=== PATIENT | female | born 1985 | race Caucasian/White ===

== ENCOUNTER 2017-10-01 10:32 | Emergency (ER) | payer BC, OTHER ==
[2017-10-01 10:49] VITALS: RESP 16; TEMP 97.9
[2017-10-01] MEDS ORDERED: ONDANSETRON ODT 4 MG TAB PO STA (12:17)
--- NOTE | 2017-10-01 12:35 | ED ---
Head Injury HPI - General Chief complaint: Head Injury Stated complaint: head injury Time Seen by Provider: 10/01/17 12:04 Source: patient, RN notes reviewed Mode of arrival: wheelchair Limitations: no limitations - History of Present Illness Initial comments: This is a 32-year-old female who presents to the emergency department chief complaint of head injury. Patient states at approximately 1245 last evening while at work at [employer] she bent down to tie her shoe. She states that she hit the front of her head on the counter above her. Reports that she had a small abrasion at the time and there was minimal bleeding that abruptly stopped. Patient reports that today she has been feeling dizzy and nauseous. She describes the dizziness as lightheadedness and that the room is spinning. She states that she feels like she is in a haze. Patient was reports that she has been having blurred vision in bilateral eyes as well as a frontal headache. She states that she took Motrin last night and this morning for headache. Denies fever, chills, chest pain, shortness of breath, abdominal pain, vomiting , constipation or diarrhea, dysuria or hematuria, numbness or tingling. - Related Data Home Medications Medication Instructions Recorded Confirmed ALPRAZolam [Xanax] 0.5 mg PO BID PRN 07/25/16 07/28/16 buPROPion SR [Wellbutrin SR] 150 mg PO QAM 07/25/16 07/28/16 Previous Rx's Medication Instructions Recorded Acetaminophen-Codeine 300-30mg 1 tab PO Q4H PRN #30 tablet 07/29/16 [Tylenol #3] Ibuprofen [Motrin] 600 mg PO Q6HR PRN #30 tab 07/29/16 Ferrous Sulfate [Feosol] 325 mg PO DAILY #30 tab 07/31/16 Allergies/Adverse reactions: Allergies Allergy/AdvReac Type Severity Reaction Status Date / Time No Known Allergies Allergy Verified 10/01/17 10:49 Review of Systems ROS Statement: Those systems with pertinent positive or pertinent negative responses have been documented in the HPI. ROS Other: All systems not noted in ROS Statement are negative. Past Medical History Additional Past Medical History / Comment(s): FIBROID, ENDOMETRIOSIS History of Any Multi-Drug Resistant Organisms: MRSA Date of last positivie culture/infection: March MDRO Source:: PUNCTURE WOUND SITE POST LAP BAND Past Surgical History: Appendectomy, Bariatric Surgery, Section, Cholecystectomy, Tubal Ligation, Uterine Ablation Additional Past Surgical History / Comment(s): LAP BAND & LAP BAND REPLACED Past Anesthesia/Blood Transfusion Reactions: Family History of Problems w/ Anesthesia Additional Past Anesthesia/Blood Transfusion Reaction / Comment(s): PATIENT WAKES UP VERY AGITATED. MOTHER HAD MOTION SICKNESS. Past Psychological History: Anxiety, Depression Smoking Status: Never smoker Past Alcohol Use History: Occasional Past Drug Use History: None Reported - Past Family History Mother Family Medical History: Cancer Additional Family Medical History / Comment(s): LUNG CANCER General Exam - General Exam Comments Initial Comments: General: Awake and alert, well-developed; in no apparent distress. HEENT: Head normocephalic. Small abrasion on the frontal scalp. No bleeding noted. Pupils are equal, round and reactive to light. Extraocular movements intact. Oropharynx moist without erythema or exudate. Neck: Supple. Normal ROM. Cardiovascular: Regular rate and rhythm. No murmurs, rubs or gallops. Chest symmetrical. Respiratory: Lungs clear to auscultation bilaterally. No wheezes, rales or rhonchi. Normal respiratory effort with no use of accessory muscles. Musculoskeletal: Normal ROM, no tenderness bilateral upper and lower extremities. Pulses 2+ equal and palpable bilaterally. Skin: [place], warm and dry without rashes or lesions. Neurological: Alert and oriented x3. CN II-XII grossly intact. Speech is fluent and answers are appropriate. No focal neuro deficits. Strength 5/5 bilateral upper and lower extremities. Rapid alternating movements normal. Finger to nose testing is normal. Romberg negative. Patient is off balance with heel to toe gait. Psychiatric: Normal mood and affect. No overt signs of depression or anxiety noted. Limitations: no limitations Course Vital Signs 10/01/17 10:47 Temperature 97.9 F Pulse Rate 79 Respiratory 16 Rate Blood Pressure 154/70 O2 Sat by Pulse 100 Oximetry Medical Decision Making - Medical Decision Making This is a 32-year-old female presents to the emergency department chief complaint of head injury. Computed tomography scan without contrast of the brain showed no intracranial hemorrhages or other acute abnormalities. Patient advised to follow up with primary care provider in 1-2 days and follow-up concussion protocol. Patient is in no acute distress at this time. She is in agreement to the plan and voiced understanding. All questions were answered. - Radiology Data Radiology results: report reviewed CT brain without contrast findings: There is no acute intracranial hemorrhage, mass effect or midline shift identified. The ventricles and sulci are within normal limits in size. The globes are intact and visualized sinuses are clear. No suspicious extra axial fluid collection is identified. Impression: No acute intracranial hemorrhage, mass effect or midline shift seen. Disposition Clinical Impression: Postconcussion syndrome Disposition: HOME SELF-CARE Condition: Good Instructions: Post Concussion Syndrome (ED) Additional Instructions: Please follow up with primary care provider within 1-2 days. Return to emergency department if symptoms should worsen or any concerns arise. Referrals: Neftali Campos DO [Primary Care Provider] - 1-2 days Time of Disposition: 12:58
--- NOTE | 2017-10-01 12:37 | CT ---
EXAMINATION TYPE: CT brain wo con DATE OF EXAM: 10/01/2017 COMPARISON: 02/08/2013 HISTORY: head injury CT DLP: 878.1 mGycm. Automated Exposure Control for Dose Reduction was Utilized. TECHNIQUE: CT scan of the head is performed without contrast. FINDINGS: There is no acute intracranial hemorrhage, mass effect, or midline shift identified. The ventricles and sulci are within normal limits in size. The globes are intact and the visualized sin uses are clear. No suspicious extra-axial fluid collection is identified. IMPRESSION: No acute intracranial hemorrhage, mass effect, or midline shift is seen.
[2017-10-01 13:11] VITALS: BP 141/89; PULSE 69
== END 2017-10-01 13:10 | disposition home or self-care (01) ==
LOC: EC 10:32
DX: S00.01XA Abrasion of scalp, initial encounter (principal); F07.81 Postconcussional syndrome; G44.319 Acute post-traumatic headache, not intractable; F32.9 Major depressive disorder, single episode, unspecified; F41.9 Anxiety disorder, unspecified; Z86.14 Personal history of Methicillin resistant Staphylococcus aureus infection; Z79.899 Other long term (current) drug therapy; W22.8XXA Striking against or struck by other objects, initial encounter; Y93.89 Activity, other specified; Y99.0 Civilian activity done for income or pay; Y92.69 Other specified industrial and construction area as the place of occurrence of the external cause
CPT/HCPCS: 70450; 99283

== ENCOUNTER → 2020-09-13 | Outpatient (CLI) | payer OTHER ==
[2020-09-13 13:29] VITALS: BP 135/81; PULSE 99; RESP 18; TEMP 98.4; BMI 25.4
--- NOTE | 2020-09-13 14:03 | P.HPBAR ---
Bariatric H&P - History & Physicial H&P Date: 09/13/20 History & Physicial: Visit/CC: lap band f/u; last seen about 5 years Patient initial contact: Initial weight: Initial weight in pounds: Height: 5 ft 4 in Initial BMI: Last weight: Current weight: 67.132 kg Current weight in pounds: 148.00 Current BMI: 25.4 [place] body weight (based on NIH guidelines): 54.431 kg Excess body weight loss: The patient is a 35 year-old F who presents for Bariatric Assessment. Patient resents today for LAP-BAND follow-up. She states that she is felt pain at her port site. She states that port is moving. Past Medical History Additional Past Medical History / Comment(s): FIBROID, ENDOMETRIOSIS History of Any Multi-Drug Resistant Organisms: MRSA Year Discovered:: March MDRO Source:: PUNCTURE WOUND SITE POST LAP BAND Past Surgical History: Appendectomy, Bariatric Surgery, Section, Cholecystectomy, Hysterectomy, Tubal Ligation, Uterine Ablation Additional Past Surgical History / Comment(s): LAP BAND & LAP BAND REPLACED Past Anesthesia/Blood Transfusion Reactions: Family History of Problems w/ Anesthesia Additional Past Anesthesia/Blood Transfusion Reaction / Comm: PATIENT WAKES UP VERY AGITATED. MOTHER HAD MOTION SICKNESS. Past Psychological History: Anxiety, Depression Smoking Status: Never smoker Past Alcohol Use History: Occasional Past Drug Use History: None Reported - Past Family History Mother Family Medical History: Cancer Additional Family Medical History / Comment(s): LUNG CANCER Surgical - Exam Vital Signs Temp Pulse Resp BP 98.4 F 99 18 135/81 09/13/20 13:23 09/13/20 13:23 09/13/20 13:23 09/13/20 13:23 - General well developed, well nourished, no distress - Eyes PERRL - ENT normal pinna - Neck no masses - Respiratory normal expansion - Cardiovascular Rhythm: regular - Abdomen LAP-BAND port is mobile. Patient lifts her legs and the port will protrude from the abdominal wall Abdomen: soft, non tender Bariatric Assessment & Plan Plan: LAP-BAND port was flushed. Patient be scheduled for LAP-BAND port replacement. Bariatric Checklist Checklist: Plan: Checklist: EGD: 1. Hiatal hernia: 2. H. Pylori: HgbA1c: Vitamin D: Smoking: Never smoker Primary care physician referral: Dr. Byrd Psychiatry clearance: Cardiology clearance: Sleep study: Diet journal: VTE risk score: VTE risk level: Rehab needs at discharge:
== END | disposition home or self-care (01) ==
LOC: BARWHC3 13:05
PROVIDERS: ATTEND Surgery
DX: Z46.51 Encounter for fitting and adjustment of gastric lap band (principal); Z98.84 Bariatric surgery status; Z72.89 Other problems related to lifestyle
CPT/HCPCS: 99211

== ENCOUNTER 2020-10-08 08:34 | Emergency (ER) | payer OTHER ==
--- NOTE | 2020-10-08 09:32 | ED ---
URI HPI - General Chief Complaint: Upper Respiratory Infection Stated Complaint: Chest Pain, Poss blood clot Time Seen by Provider: 10/08/20 09:06 Source: patient Mode of arrival: ambulatory Limitations: no limitations - History of Present Illness Initial Comments: 35-year-old female who had a recent cold in 19 infection 2 weeks ago, use control presenting to the ER today for cc of left leg pain/swelling and chest pain/SOB. Patient states that she had tested positive 2 weeks ago with covid 19, she states she was starting to feel better and only had mild symptoms even at the time of infection. Patient states that for the past 3 days she has had an aching sensation in the left posterior calf and noted mild swelling, she states she has also had a pressure over her chest that increases with inspiration. Patient denies hemoptysis, history of DVT/PE. Patient denies nausea, vomiting. She states she has mild SOB. Patient went to her PCP appointment today at [facility] and told to come here for evaluation of possible blood clots. Patient has no additional complaints. - Related Data Home Medications Medication Instructions Recorded Confirmed Escitalopram [Lexapro] 10 mg PO DAILY 09/13/20 10/08/20 buPROPion XL [Wellbutrin Xl] 150 mg PO DAILY 10/08/20 10/08/20 Allergies Allergy/AdvReac Type Severity Reaction Status Date / Time No Known Allergies Allergy Verified 10/08/20 09:17 Review of Systems ROS Statement: Those systems with pertinent positive or pertinent negative responses have been documented in the HPI. ROS Other: All systems not noted in ROS Statement are negative. Past Medical History Additional Past Medical History / Comment(s): FIBROID, ENDOMETRIOSIS, covid 19 History of Any Multi-Drug Resistant Organisms: MRSA Date of last positivie culture/infection: March MDRO Source:: PUNCTURE WOUND SITE POST LAP BAND Past Surgical History: Appendectomy, Bariatric Surgery, Section, Cholecystectomy, Hysterectomy, Tubal Ligation, Uterine Ablation Additional Past Surgical History / Comment(s): LAP BAND & LAP BAND REPLACED Past Anesthesia/Blood Transfusion Reactions: Family History of Problems w/ Anesthesia Additional Past Anesthesia/Blood Transfusion Reaction / Comment(s): PATIENT WAKES UP VERY AGITATED. MOTHER HAD MOTION SICKNESS. Past Psychological History: Anxiety, Depression Smoking Status: Never smoker Past Alcohol Use History: Occasional Past Drug Use History: None Reported - Past Family History Mother Family Medical History: Cancer Additional Family Medical History / Comment(s): LUNG CANCER General Exam - General Exam Comments Initial Comments: General: The patient is awake and alert, in no distress Eye: +3 mm pupils are equal, round and reactive to light, extra-ocular movements are intact. No nystagmus. There is normal conjunctiva bilaterally. No signs of icterus. Ears, nose, mouth and throat: There are moist mucous membranes and no oral lesions. Neck: The neck is supple, there is no tenderness or JVD. Cardiovascular: There is a regular rate and rhythm. No murmur, rub or gallop is appreciated. Respiratory: Lungs are clear to auscultation, respirations are non-labored, breath sounds are equal. No wheezes, stridor, rales, or rhonchi. Gastrointestinal: Soft, non-distended, non-tender abdomen without masses or organomegaly noted. There is no rebound or guarding present. Musculoskeletal: Normal ROM, no tenderness. Strength 5/5. Sensation intact. DP pulses equal bilaterally 2+. Neurological: A&O x 3. CN II-XII intact, There are no obvious motor or sensory deficits. Coordination appears grossly intact. Speech is normal. Skin: Skin is warm and dry and no rashes or lesions are noted. Left calf pain and mild swelling. Psychiatric: Cooperative, appropriate mood & affect, normal judgment. Limitations: no limitations Course Vital Signs 10/08/20 10/08/20 10/08/20 08:47 09:50 09:56 Temperature 99.4 F Pulse Rate 92 70 Respiratory 20 18 18 Rate Blood Pressure 109/61 123/69 O2 Sat by Pulse 100 100 Oximetry 10/08/20 10/08/20 10:56 11:50 Temperature 97.5 F L Pulse Rate 62 60 Respiratory 18 18 Rate Blood Pressure 124/64 112/66 O2 Sat by Pulse 100 100 Oximetry Medical Decision Making - Medical Decision Making D-dimer mildly elevated lab stable. Patient is no obvious swelling of the leg ultrasound negative for DVT CTA no convincing findings of pulmonary embolism. Patient's vital signs normalized she appears well and nontoxic distress she is not hypoxic nor tachycardic. At this time feel she is stable for discharge with outpatient primary care follow-up patient is agreeable to this care plan and return parameters recommended repeat ultrasound of left lower extremity one week if symptoms are persistent. Discussed case with Dr. Aleman who is agreeable to care plan - Lab Data Result diagrams: 10/08/20 09:47 10/08/20 09:47 Lab Results 10/08/20 10/08/20 10/08/20 Range/Units 09:47 09:47 09:47 WBC 3.8 (3.8-10.6) k/uL RBC 4.84 (3.80-5.40) m/uL Hgb 14.9 (11.4-16.0) gm/dL Hct 43.3 (34.0-46.0) % MCV 89.4 (80.0-100.0) fL MCH 30.8 (25.0-35.0) pg MCHC 34.4 (31.0-37.0) g/dL RDW 12.9 (11.5-15.5) % Plt Count 242 (150-450) k/uL MPV 7.5 Neutrophils % 61 % Lymphocytes % 24 % Monocytes % 7 % Eosinophils % 4 % Basophils % 1 % Neutrophils # 2.3 (1.3-7.7) k/uL Lymphocytes # 0.9 L (1.0-4.8) k/uL Monocytes # 0.3 (0-1.0) k/uL Eosinophils # 0.2 (0-0.7) k/uL Basophils # 0.1 (0-0.2) k/uL PT 9.9 (9.0-12.0) sec INR 1.0 (<1.2) APTT 21.5 L (22.0-30.0) sec D-Dimer 0.72 H (<0.60) mg/L FEU Sodium 138 (137-145) mmol/L Potassium 4.8 (3.5-5.1) mmol/L Chloride 108 H (98-107) mmol/L Carbon Dioxide 24 (22-30) mmol/L Anion Gap 6 mmol/L BUN 16 (7-17) mg/dL Creatinine 0.78 (0.52-1.04) mg/dL Est GFR (CKD-EPI)AfAm >90 (>60 ml/min/1.73 sqM) Est GFR (CKD-EPI)NonAf >90 (>60 ml/min/1.73 sqM) Glucose 66 L (74-99) mg/dL Calcium 9.3 (8.4-10.2) mg/dL Magnesium 2.0 (1.6-2.3) mg/dL Total Bilirubin 1.1 (0.2-1.3) mg/dL AST 20 (14-36) U/L ALT 10 (4-34) U/L Alkaline Phosphatase 51 (38-126) U/L Troponin I (0.000-0.034) ng/mL Total Protein 6.9 (6.3-8.2) g/dL Albumin 4.1 (3.5-5.0) g/dL 10/08/20 Range/Units 09:47 WBC (3.8-10.6) k/uL RBC (3.80-5.40) m/uL Hgb (11.4-16.0) gm/dL Hct (34.0-46.0) % MCV (80.0-100.0) fL MCH (25.0-35.0) pg MCHC (31.0-37.0) g/dL RDW (11.5-15.5) % Plt Count (150-450) k/uL MPV Neutrophils % % Lymphocytes % % Monocytes % % Eosinophils % % Basophils % % Neutrophils # (1.3-7.7) k/uL Lymphocytes # (1.0-4.8) k/uL Monocytes # (0-1.0) k/uL Eosinophils # (0-0.7) k/uL Basophils # (0-0.2) k/uL PT (9.0-12.0) sec INR (<1.2) APTT (22.0-30.0) sec D-Dimer (<0.60) mg/L FEU Sodium (137-145) mmol/L Potassium (3.5-5.1) mmol/L Chloride (98-107) mmol/L Carbon Dioxide (22-30) mmol/L Anion Gap mmol/L BUN (7-17) mg/dL Creatinine (0.52-1.04) mg/dL Est GFR (CKD-EPI)AfAm (>60 ml/min/1.73 sqM) Est GFR (CKD-EPI)NonAf (>60 ml/min/1.73 sqM) Glucose (74-99) mg/dL Calcium (8.4-10.2) mg/dL Magnesium (1.6-2.3) mg/dL Total Bilirubin (0.2-1.3) mg/dL AST (14-36) U/L ALT (4-34) U/L Alkaline Phosphatase (38-126) U/L Troponin I <0.012 (0.000-0.034) ng/mL Total Protein (6.3-8.2) g/dL Albumin (3.5-5.0) g/dL Disposition Clinical Impression: Chest discomfort, History of 2019 novel coronavirus disease (COVID-19), Pain of left calf Disposition: HOME SELF-CARE Condition: Good Instructions (If sedation given, give patient instructions): Upper Respiratory Infection (ED) Additional Instructions: Please use medication as discussed. Please follow-up with family doctor in the next 2 days. Please return to emergency room if the symptoms increase or worsen or for any other concerns. Is patient prescribed a controlled substance at d/c from ED?: No Referrals: Mary Byrd DO [Primary Care Provider] - 1-2 days Time of Disposition: 11:31
[2020-10-08 09:50] VITALS: RESP 18
[2020-10-08 09:59] LABS: Basophils # (A) 0.1 k/uL (0-0.2); Basophils % (A) 1 %; Eosinophils # (A) 0.2 k/uL (0-0.7); Eosinophils % (A) 4 %; HCT 43.3 % (34.0-46.0); HGB 14.9 gm/dL (11.4-16.0); Lymphocytes # (A) 0.9 k/uL (1.0-4.8); Lymphocytes % (A) 24 %; MCH 30.8 pg (25.0-35.0); MCHC 34.4 g/dL (31.0-37.0); MCV 89.4 fL (80.0-100.0); Mean Platelet Volume 7.5; Monocytes # (A) 0.3 k/uL (0-1.0); Monocytes % (A) 7 %; Neutrophils # (A) 2.3 k/uL (1.3-7.7); Neutrophils % (A) 61 %; Platelet Count 242 k/uL (150-450); RBC 4.84 m/uL (3.80-5.40); RDW 12.9 % (11.5-15.5); WBC 3.8 k/uL (3.8-10.6)
[2020-10-08 10:10] LABS: ALT 10 U/L (4-34); AST 20 U/L (14-36); African American GFR (CKD) >90 (>60 ml/min/1.73 sqM); Albumin 4.1 g/dL (3.5-5.0); Alkaline Phosphatase 51 U/L (38-126); Anion Gap 6 mmol/L; Blood Urea Nitrogen 16 mg/dL (7-17); Calcium 9.3 mg/dL (8.4-10.2); Carbon Dioxide 24 mmol/L (22-30); Chloride 108 mmol/L (98-107); Glucose 66 mg/dL (74-99); Non-African American GFR(CKD) >90 (>60 ml/min/1.73 sqM); Potassium 4.8 mmol/L (3.5-5.1); Sodium 138 mmol/L (137-145); Total Bilirubin 1.1 mg/dL (0.2-1.3); Total Protein 6.9 g/dL (6.3-8.2)
--- NOTE | 2020-10-08 10:34 | CT ---
EXAMINATION TYPE: CT chest angio for PE DATE OF EXAM: 10/08/2020 COMPARISON: None HISTORY: COVID 19, Left leg swelling, chest pain CT DLP: 196.7 mGycm Automated exposure control for dose reduction was used. CONTRAST: CT Chest for pulmonary embolism performed with without and with IV Contrast, patient injected with 10 0 ml mL of Isovue 370. FINDINGS: LUNGS: The lungs are grossly clear, there is no concerning parenchymal mass or nodule identified. T here is no pleural effusion or pneumothorax seen. The tracheobronchial tree is patent. MEDIASTINUM: There is satisfactory enhancement of the pulmonary artery and its branches, there is no CT evidence for pulmonary embolism. There are no greater than 1 cm hilar or mediastinal lymph nodes. No pericardial effusion is seen. AORTA: No additional significant abnormality is seen. OTHER: The patient is post lap band. Distal esophagus shows thickened appearance.. IMPRESSION: Postop changes. Findings in the esophagus may be related to patient's surgery but are indeterminate. No evident pulmonary embolism.
[2020-10-08 10:43] LABS: Partial Thromboplastin Time 21.5 sec (22.0-30.0); Prothrombin Time 9.9 sec (9.0-12.0)
[2020-10-08 10:53] LABS: D-Dimer 0.72 mg/L FEU (<0.60)
--- NOTE | 2020-10-08 11:28 | US ---
EXAMINATION TYPE: US venous doppler duplex LE DATE OF EXAM: 10/08/2020 11:07 AM COMPARISON: NONE CLINICAL HISTORY: 35-year-old female Left leg pain and swelling SIDE PERFORMED: Left TECHNIQUE: The lower extremity deep venous system is examined utilizing real time linear array sonog barbie with graded compression, doppler sonography and color-flow sonography. FINDINGS: VESSELS IMAGED: Common Femoral Vein Deep Femoral Vein Greater Saphenous Vein * Femoral Vein Popliteal Vein Small Saphenous Vein * Proximal Calf Veins (* superficial vessels) Left Leg: Appears negative for DVT IMPRESSION: No evidence for DVT within the left lower extremity imaged from the groin to the upper calf.
[2020-10-08 11:52] VITALS: BP 112/66; PULSE 60; TEMP 97.5
== END 2020-10-08 11:54 | disposition home or self-care (01) ==
LOC: EC 08:34
DX: R07.89 Other chest pain (principal); M79.605 Pain in left leg; R79.89 Other specified abnormal findings of blood chemistry; F41.9 Anxiety disorder, unspecified; F32.9 Major depressive disorder, single episode, unspecified; Z79.899 Other long term (current) drug therapy; Z86.19 Personal history of other infectious and parasitic diseases; Z86.14 Personal history of Methicillin resistant Staphylococcus aureus infection; Z98.84 Bariatric surgery status
CPT/HCPCS: 36415; 93005; 85379; 80053; 83735; 84484; 85025; 85610; 85730; 93971; 71275; 99285; Q9967

== ENCOUNTER → 2020-12-31 | Outpatient (CLI) | payer OTHER ==
[2020-12-31 16:26] LABS: Basophils # (A) 0.1 k/uL (0-0.2); Basophils % (A) 1 %; Eosinophils # (A) 0.2 k/uL (0-0.7); Eosinophils % (A) 5 %; HCT 39.2 % (34.0-46.0); HGB 13.3 gm/dL (11.4-16.0); Lymphocytes # (A) 1.1 k/uL (1.0-4.8); Lymphocytes % (A) 24 %; MCHC 33.9 g/dL (31.0-37.0); MCV 91.5 fL (80.0-100.0); Monocytes # (A) 0.3 k/uL (0-1.0); Monocytes % (A) 7 %; Neutrophils # (A) 2.8 k/uL (1.3-7.7); Neutrophils % (A) 61 %; Platelet Count 230 k/uL (150-450); RBC 4.29 m/uL (3.80-5.40); RDW 13.1 % (11.5-15.5); WBC 4.6 k/uL (3.8-10.6)
[2020-12-31 16:37] LABS: ALT 9 U/L (4-34); AST 18 U/L (14-36); African American GFR (CKD) >90 (>60 ml/min/1.73 sqM); Albumin 4.2 g/dL (3.5-5.0); Alkaline Phosphatase 43 U/L (38-126); Anion Gap 8 mmol/L; Blood Urea Nitrogen 11 mg/dL (7-17); Calcium 9.2 mg/dL (8.4-10.2); Carbon Dioxide 26 mmol/L (22-30); Chloride 103 mmol/L (98-107); Glucose 71 mg/dL (74-99); Non-African American GFR(CKD) >90 (>60 ml/min/1.73 sqM); Potassium 4.3 mmol/L (3.5-5.1); Sodium 137 mmol/L (137-145); Total Bilirubin 2.1 mg/dL (0.2-1.3); Total Protein 6.7 g/dL (6.3-8.2)
== END | disposition home or self-care (01) ==
LOC: LABPAT 15:03
PROVIDERS: ATTEND Surgery
DX: Z01.818 Encounter for other preprocedural examination (principal)
CPT/HCPCS: 36415; 80053; 85025; 93005

== ENCOUNTER 2021-01-10 07:06 | Day surgery (SDC) | payer OTHER ==
[2021-01-06 14:35] VITALS: BMI 25.7
[~2021-01-10 07:06] MED LIST: DEXAMETHASONE SOD PHOSPHATE 4 MG/ML 1 ML VIAL IV ONE; HYDROmorphone 0.5 MG/0.5 ML SYRINGE IVP PRN; LACTATED RINGERS 1,000 ML IV SCH; MIDAZOLAM 2 MG/2 ML VIAL IV PRN; ONDANSETRON 4 MG/2 ML VIAL IVP ONE; SCOPOLAMINE 1.5MG/72HR PATCH TRANSDERM ONE
--- NOTE | 2021-01-10 08:54 | P.GSHP ---
History of Present Illness H&P Date: 01/10/21 Chief Complaint: GERD This a 35-year-old female who presents today for removal of LAP-BAND system. Patient's history of GERD. She has lost approximately 150 pounds with her LAP- BAND. Patient is unable to have her band adjusted in order to resolve her GERD issues. She's aware the risk of weight gain. Past Medical History Additional Past Medical History / Comment(s): ENDOMETRIOSIS, covid 19 History of Any Multi-Drug Resistant Organisms: MRSA Date of last positivie culture/infection: March MDRO Source:: PUNCTURE WOUND SITE POST LAP BAND Past Surgical History: Appendectomy, Bariatric Surgery, Section, Cholecystectomy, Hysterectomy, Tubal Ligation, Uterine Ablation Additional Past Surgical History / Comment(s): LAP BAND & LAP BAND REPLACED Past Anesthesia/Blood Transfusion Reactions: Family History of Problems w/ Anesthesia Additional Past Anesthesia/Blood Transfusion Reaction / Comment(s): PATIENT WAKES UP VERY AGITATED. MOTHER HAD MOTION SICKNESS. Smoking Status: Never smoker - Past Family History Mother Family Medical History: Cancer, Deep Vein Thrombosis (DVT) Additional Family Medical History / Comment(s): LUNG CANCER Medications and Allergies Home Medications Medication Instructions Recorded Confirmed Type Escitalopram [Lexapro] 10 mg PO DAILY 09/13/20 01/10/21 History buPROPion XL [Wellbutrin Xl] 150 mg PO DAILY 10/08/20 01/10/21 History Allergies Allergy/AdvReac Type Severity Reaction Status Date / Time No Known Allergies Allergy Verified 01/10/21 07:32 Surgical - Exam Vital Signs Temp Pulse Resp BP 97 F L 67 16 117/61 01/10/21 07:34 01/10/21 07:34 01/10/21 07:34 01/10/21 07:34 - General well developed, well nourished, no distress - Eyes PERRL - ENT normal pinna, normal nares - Neck no masses - Respiratory normal expansion - Cardiovascular Rhythm: regular - Abdomen Abdomen: soft, non tender Assessment and Plan Assessment: GERD. We'll perform removal of LAP-BAND system.
[2021-01-10] MEDS ORDERED: LIDOCAINE 1% INJ 10MG/ML (20 ML MDV) ONE (09:07)
[2021-01-10] MEDS ORDERED: ROCURONIUM 10 MG/ML (5 ML VIAL) IV ONE (09:07)
[2021-01-10] MEDS ORDERED: HEPARIN SODIUM,PORCINE 5,000 UNIT/ML 1 ML VIAL ONE (09:07)
[2021-01-10] MEDS ORDERED: PROPOFOL 10 MG/ML 20 ML VIAL IV ONE (09:07)
[2021-01-10] MEDS ORDERED: fentaNYL (PF) 50 MCG/ML 2 ML AMP ONE (09:07)
[2021-01-10] MEDS ORDERED: GLYCOPYRROLATE 0.2 MG/ML 2 ML VIAL ONE (09:07)
[2021-01-10] MEDS ORDERED: SUCCINYLCHOLINE CHLORIDE 100 MG/5 ML SYR IV ONE (09:07)
[2021-01-10] MEDS ORDERED: MIDAZOLAM 2 MG/2 ML VIAL ONE (09:07)
[2021-01-10] MEDS ORDERED: NEOSTIGMINE 1 MG/ML 10 ML VIAL ONE (09:07)
[2021-01-10] MEDS ORDERED: KETOROLAC 15 MG/ML 1 ML VIAL ONE (09:07)
[2021-01-10] MEDS ORDERED: BUPIVACAINE (PF) 0.5% 30 ML VIAL SQ ONE (09:33)
[2021-01-10 10:20] VITALS: TEMP 96.8
[2021-01-10] MEDS ORDERED: LACTATED RINGERS 1,000 ML IV ONE ×2 (10:30)
--- NOTE | 2021-01-10 10:30 | P.OP ---
Date of Procedure: 01/10/21 Preoperative Diagnosis: GERD Postoperative Diagnosis: GERD Procedure(s) Performed: Laparoscopic Removal of LAP-BAND system Anesthesia: MARGUERITE Surgeon: Parvez Dunn Estimated Blood Loss (ml): 10 Pathology: none sent Condition: stable Disposition: PACU Description of Procedure: The patient's placed on the operating table in the supine position she received general anesthesia. She was then placed in dorsal 5 position. Her abdomen was prepped and draped in sterile fashion. The skin was incised at the LAP-BAND port site and using left cautery the LAP-BAND port was dissected free the connecting tube was then cut. Next using a 5 mm trocar under direct visualization panel cavity is entered. The abdomen was insufflated after adequate insufflation the laparoscope placed back Cavity. Next a fibrillar trocar is placed in the right upper quadrant, right lateral position and left lateral position. The original 5 mm trocar was exchanged for a 15 minute trocar. And then a left periumbilical 5 mm trocar was placed. The adhesions to the LAP-BAND device were then seen. These were lysed using left cautery. The LAP-BAND was then cut and withdrawn from around stomach. The LAP-BAND was then extracted through the 15 mm trocar site. There is no bleeding seen. The trochars withdrawn. The skin was closed interrupted 3-0 Monocryl suture. Dermabond was applied. Patient top she will was sent to recovery room in stable condition.
[2021-01-10 12:24] VITALS: BP 108/67; PULSE 70; RESP 16
== END 2021-01-10 12:51 | disposition home or self-care (01) ==
LOC: OR 07:06
PROVIDERS: ATTEND Surgery
DX: K21.9 Gastro-esophageal reflux disease without esophagitis (principal); K66.0 Peritoneal adhesions (postprocedural) (postinfection); F41.9 Anxiety disorder, unspecified; F32.9 Major depressive disorder, single episode, unspecified; Z79.899 Other long term (current) drug therapy; Z90.49 Acquired absence of other specified parts of digestive tract; Z98.890 Other specified postprocedural states; Z90.710 Acquired absence of both cervix and uterus; Z86.16 Personal history of COVID-19; Z86.14 Personal history of Methicillin resistant Staphylococcus aureus infection; Z98.84 Bariatric surgery status; Z98.891 History of uterine scar from previous surgery; Z98.51 Tubal ligation status; Z82.49 Family history of ischemic heart disease and other diseases of the circulatory system; Z80.1 Family history of malignant neoplasm of trachea, bronchus and lung
CPT/HCPCS: 43774; J2250; J1644; J1100; J2710; J0690; J2405; J2001; J3010; J1885; J0330; J2704

== ENCOUNTER → 2022-01-30 | Outpatient (CLI) | payer OTHER ==
[2022-01-30 15:00] VITALS: BP 134/92; PULSE 82; TEMP 98.2; BMI 47.3
--- NOTE | 2022-01-30 15:38 | P.HPBAR ---
Bariatric H&P - History & Physicial H&P Date: 01/30/22 History & Physicial: Visit/CC: discuss sleeve gastrectomy Patient initial contact: Initial weight: Initial weight in pounds: Height: 5 ft 4 in Initial BMI: Last weight: Current weight: 125.191 kg Current weight in pounds: 276.00 Current BMI: 47.3 [place] body weight (based on NIH guidelines): 54.431 kg Excess body weight loss: The patient is a 36 year-old F who presents for Bariatric Assessment. He presents today for presurgical consultation. She had her LAP-BAND removed approximately 15 months ago. She is gained 125 pounds. She is requesting conversion sleeve gastrectomy. Patient had her LAP-BAND removed due to arya hnical problems with the LAP-BAND device. Past Medical History Additional Past Medical History / Comment(s): FIBROID, ENDOMETRIOSIS, covid 19 History of Any Multi-Drug Resistant Organisms: MRSA Year Discovered:: March MDRO Source:: PUNCTURE WOUND SITE POST LAP BAND Past Surgical History: Appendectomy, Bariatric Surgery, Section, Cholecystectomy, Hysterectomy, Tubal Ligation, Uterine Ablation Additional Past Surgical History / Comment(s): LAP BAND & LAP BAND REPLACED Past Anesthesia/Blood Transfusion Reactions: Family History of Problems w/ Anesthesia Additional Past Anesthesia/Blood Transfusion Reaction / Comm: PATIENT WAKES UP VERY AGITATED. MOTHER HAD MOTION SICKNESS. Smoking Status: Never smoker - Past Family History Mother Family Medical History: Cancer, Deep Vein Thrombosis (DVT) Additional Family Medical History / Comment(s): LUNG CANCER Surgical - Exam Vital Signs Temp Pulse BP 98.2 F 82 134/92 01/30/22 14:57 01/30/22 14:57 01/30/22 14:57 - General well developed, well nourished, no distress - Eyes PERRL - ENT normal pinna - Neck no masses - Respiratory normal expansion - Cardiovascular Rhythm: regular - Abdomen Abdomen: soft, non tender Bariatric Assessment & Plan Plan: Morbid obesity, BMI 47. Patient will undergo EGD. We will attempt authorizing for conversion to sleeve gastrectomy. Bariatric Checklist Checklist: Plan: Checklist: EGD: 1. Hiatal hernia: 2. H. Pylori: HgbA1c: Vitamin D: Smoking: Never smoker Primary care physician referral: Dr. Byrd Psychiatry clearance: Cardiology clearance: Sleep study: Diet journal: VTE risk score: VTE risk level: Rehab needs at discharge:
== END ==
LOC: BARWHC3 14:16
PROVIDERS: ATTEND Surgery
DX: E66.01 Morbid (severe) obesity due to excess calories (principal); Z68.42 Body mass index [BMI] 45.0-49.9, adult; Z98.84 Bariatric surgery status
CPT/HCPCS: 99211

== ENCOUNTER 2023-05-18 14:52 | Emergency (ER) | payer OTHER ==
[2023-05-18] MEDS ORDERED: LIDOCAINE 5% PATCH TOPICAL STA (16:21)
[2023-05-18] MEDS ORDERED: ORPHENADRINE 30 MG/ML 2 ML VIAL IM STA (16:22)
[2023-05-18] MEDS ORDERED: ACETAMINOPHEN TAB 325 MG TAB PO STA (16:22)
--- NOTE | 2023-05-18 16:26 | ED ---
General Adult HPI - General Chief complaint: Back Pain/Injury Stated complaint: Back Pain Time Seen by Provider: 05/18/23 16:01 Source: patient, RN notes reviewed Mode of arrival: wheelchair Limitations: no limitations - History of Present Illness Initial comments: 37-year-old female presents emergency Department with chief complaint of back pain. 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 She went to the chiropractor on Sunday and had some improvement in her pain but states that earlier today she bent down to lift a box and started having pain again. She states that she has been taking Motrin without relief. She reports that she has muscle relaxers at home but she has not taken any today. Denies fever, chills, urinary retention, loss of bowel or bladder function, saddle anesthesia. - Related Data Previous Rx's Medication Instructions Recorded Ibuprofen [Motrin] 600 mg PO Q6HR PRN #40 tab 01/10/21 Allergies Allergy/AdvReac Type Severity Reaction Status Date / Time No Known Allergies Allergy Verified 05/18/23 15:53 Review of Systems ROS Statement: Those systems with pertinent positive or pertinent negative responses have been documented in the HPI. ROS Other: All systems not noted in ROS Statement are negative. Past Medical History Additional Past Medical History / Comment(s): migraines, COVID 08/2020 History of Any Multi-Drug Resistant Organisms: MRSA Date of last positivie culture/infection: March MDRO Source:: PUNCTURE WOUND SITE POST LAP BAND Past Surgical History: Appendectomy, Bariatric Surgery, Section, Cholecystectomy, Hysterectomy, Tubal Ligation, Uterine Ablation Additional Past Surgical History / Comment(s): LAP BAND & LAP BAND REPLACED then later removed Past Anesthesia/Blood Transfusion Reactions: Family History of Problems w/ Anesthesia Additional Past Anesthesia/Blood Transfusion Reaction / Comment(s): PATIENT WAKES UP VERY AGITATED. MOTHER HAD MOTION SICKNESS. Past Psychological History: Anxiety, Depression Smoking Status: Former smoker Past Alcohol Use History: None Reported Past Drug Use History: None Reported - Past Family History Mother Family Medical History: Cancer, Deep Vein Thrombosis (DVT) Additional Family Medical History / Comment(s): LUNG CANCER General Exam Limitations: no limitations General appearance: alert, in no apparent distress Head exam: Present: atraumatic, normocephalic, normal inspection Eye exam: Present: normal appearance, PERRL, EOMI. Absent: scleral icterus, conjunctival injection, periorbital swelling ENT exam: Present: normal exam, mucous membranes moist Neck exam: Present: normal inspection, full ROM. Absent: tenderness, meningismus, lymphadenopathy Respiratory exam: Present: normal lung sounds bilaterally. Absent: respiratory distress, wheezes, rales, rhonchi, stridor Cardiovascular Exam: Present: regular rate, normal rhythm, normal heart sounds. Absent: systolic murmur, diastolic murmur, rubs, gallop, clicks GI/Abdominal exam: Present: soft, normal bowel sounds. Absent: distended, tenderness, guarding, rebound, rigid Extremities exam: Present: normal inspection, full ROM, normal capillary refill. Absent: tenderness, pedal edema, joint swelling, calf tenderness Back exam: Present: normal inspection, paraspinal tenderness (Mostly left-sided) Neurological exam: Present: alert, oriented X3, CN II-XII intact Psychiatric exam: Present: normal affect, normal mood Skin exam: Present: warm, dry, intact, normal color. Absent: rash Course Vital Signs 05/18/23 05/18/23 15:50 17:21 Temperature 97.6 F 98.1 F Pulse Rate 73 76 Respiratory 20 16 Rate Blood Pressure 126/88 132/69 O2 Sat by Pulse 100 100 Oximetry Medical Decision Making - Medical Decision Making Was pt. sent in by a medical professional or institution (MELIZA Archuleta, VISUAL MERCHANDISING SPECIALIST, urgent care, hospital, or [facility]...) When possible be specific @ -No Did you speak to anyone other than the patient for history (EMS, parent, family, police, friend...)? What history was obtained from this source @ -No Did you review nursing and triage notes (agree or disagree)? Why? @ -I reviewed and agree with nursing and triage notes Were old charts reviewed (outside hosp., previous admission, EMS record, old EKG, old radiological studies, urgent care reports/EKG's, [facility] records)? Report findings @ -No old charts were reviewed Differential Diagnosis (chest pain, altered mental status, abdominal pain women, abdominal pain men, vaginal bleeding, weakness, fever, dyspnea, syncope, headache, dizziness, GI bleed, back pain, seizure, CVA, palpatations, mental health, musculoskeletal)? @ -Differential Musculoskeletal Muscular strain, contusion, ligament sprain, fracture, arthritis, septic arthritis, bursitis, cellulitis, muscle spasm, nerve compression, DVT, arterial occlusion, herpes zoster, electrolyte abnormality, tumor.... This is not meant to be in all inclusive list EKG interpreted by me (3pts min.). @ -None X-rays interpreted by me (1pt min.). @ -X-ray lumbar spine showed no acute fracture, mild degenerative joint disease CT interpreted by me (1pt min.). @ -None done U/S interpreted by me (1pt. min.). @ -None done What testing was considered but not performed or refused? (CT, X-rays, U/S, labs)? Why? @ -None What meds were considered but not given or refused? Why? @ -None Did you discuss the management of the patient with other professionals (professionals i.e. , PA, VISUAL MERCHANDISING SPECIALIST, lab, RT, psych nurse, social worker health services, electronics inspector, t eacher, diplomatic officer, case aide)? Give summary @ -No Was smoking cessation discussed for >3mins.? @ -No Was critical care preformed (if so, how long)? @ -No Were there social determinants of health that impacted care today? How? (Homelessness, low income, unemployed, alcoholism, drug addiction, transportation, low edu. Level, literacy, decrease access to med. care, care home, rehab)? @ -No Was there de-escalation of care discussed even if they declined (Discuss DNR or withdrawal of care, Hospice)? DNR status @ -No What co-morbidities impacted this encounter? (DM, HTN, Smoking, COPD, CAD, Cancer, CVA, ARF, Chemo, Hep., AIDS, mental health diagnosis, sleep apnea, morbid obesity)? @ -None Was patient admitted / discharged? Hospital course, mention meds given and ro tazlina, prescriptions, significant lab abnormalities, going to OR and other pertinent info. @ -Discharged. Patient presented to emergency department chief complaint of low back pain. Patient has no red flag symptoms including urinary retention, loss of bowel or bladder function, fever, saddle anesthesia. X-ray lumbar spine showed no acute fracture, mild degenerative changes. Patient was given a shot of Norflex, Tylenol, lidocaine patch with some relief in her symptoms but was still reporting pain. Patient given a dose of IM Dilaudid. Patient advised to continue taking Tylenol and Motrin as needed for pain along with muscle relaxers that she has at home. Patient advised to return precautions and discharged stable condition. Case discussed with my attending, Dr. Avalos Undiagnosed new problem with uncertain prognosis? @ -No Drug Therapy requiring intensive monitoring for toxicity (Heparin, Nitro, Insulin, Cardizem)? @ -No Were any procedures done? @ -No Diagnosis/symptom? @ -Mechanical back pain Acute, or Chronic, or Acute on Chronic? @ -Acute Uncomplicated (without systemic symptoms) or Complicated (systemic symptoms)? @ -Uncomplicated Side effects of treatment? @ -No Exacerbation, Progression, or Severe Exacerbation? @ -No Poses a threat to life or bodily function? How? (Chest pain, USA, CT, pneumonia, PE, COPD, DKA, ARF, appy, cholecystitis, CVA, Diverticulitis, Homicidal, Suicidal, threat to staff... and all critical care pts) @ -No Disposition Clinical Impression: Mechanical back pain Disposition: HOME SELF-CARE Condition: Stable Instructions (If sedation given, give patient instructions): Acute Low Back Pain (ED) Additional Instructions: Alternate Tylenol and Motrin as needed for pain along with your muscle relaxer. Please return to the emergency department for new or worsening symptoms. Is patient prescribed a controlled substance at d/c from ED?: No Referrals: Mary Byrd DO [Primary Care Provider] - 1-2 days Time of Disposition: 17:59
[2023-05-18 17:24] VITALS: RESP 16
[2023-05-18] MEDS ORDERED: HYDROmorphone 0.5 MG/0.5 ML SYRINGE IM STA (17:28)
--- NOTE | 2023-05-18 17:51 | XR ---
EXAMINATION TYPE: XR lumbar spine 2 or 3V DATE OF EXAM: 05/18/2023 5:20 PM INDICATION: Patient age:Female; 37 years old; Reason for study: pain; COMPARISON: None TECHNIQUE: Frontal and lateral views of the spine. FINDINGS: No evidence of any acute osseous pathology. No evidence of loss of vertebral body height i s seen. There is normal alignment of the lumbar vertebral bodies. Mild scattered disc space narrowing . Multilevel marginal osteophyte formation throughout the visualized spine. There is facet joint arth ropathy throughout the spine. Scattered at least mild neural foraminal stenosis. Upper quadrant with secondary collapse. IMPRESSION: 1. No acute fracture. 2. Mild multilevel disc degeneration.
[2023-05-18 18:56] VITALS: BP 126/72; PULSE 72; TEMP 97.9
== END 2023-05-18 18:56 | disposition home or self-care (01) ==
LOC: EC 14:52
DX: M51.36 Other intervertebral disc degeneration, lumbar region (principal); Z87.891 Personal history of nicotine dependence; Z86.16 Personal history of COVID-19; X50.0XXA Overexertion from strenuous movement or load, initial encounter; Y99.0 Civilian activity done for income or pay
CPT/HCPCS: 72100; 99283; 96372 ×2; J2360; J1170

== ENCOUNTER 2024-01-31 11:00 | Emergency (ER) | payer OTHER ==
[2024-01-31 11:21] VITALS: BP 99/71; PULSE 80; RESP 18; TEMP 98.6
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
[2024-01-31] MEDS: ONDANSETRON 4 MG/2 ML VIAL IVP STA (13:00)
[2024-01-31] MEDS: DEXAMETHASONE SOD PHOSPHATE 10 MG/ML 1 ML VIAL IVP STA (13:00)
[2024-01-31] MEDS: KETOROLAC 15 MG/ML 1 ML VIAL IVP STA (13:00)
[2024-01-31] MEDS: SODIUM CHLORIDE 0.9% 1,000 ML IV STA (13:00)
== END 2024-01-31 13:39 | disposition home or self-care (01) ==
LOC: EC 11:00
DX: S09.90XA Unspecified injury of head, initial encounter (principal); Z87.891 Personal history of nicotine dependence; Z86.16 Personal history of COVID-19; Z90.49 Acquired absence of other specified parts of digestive tract; W22.8XXA Striking against or struck by other objects, initial encounter
CPT/HCPCS: 70450; 99283; 96374; 96375 ×2; 96361; J1100; J2405; J1885